=== PATIENT | male | born 1935 | race Caucasian/White ===

== ENCOUNTER 2021-10-21 09:08 | Emergency (ER) | payer MEDICARE, SELFPAY ==
--- NOTE | ~2021-10-21 | CT_ITS ---
EXAM: 1. Noncontrast head CT 2. Noncontrast facial bone CT 3. Noncontrast cervical spine CT INDICATION: Fall with head/neck and face injury. COMPARISON: None TECHNIQUE: Axial slices were obtained from skull base to vertex and displayed. This was followed by helical, multislice, multidetector axial images from the occiput to the upper thorax. Coronal and sagittal reformats of the cervical spine in addition to coronal reformats of the head were obtained at the technologist workstation. DLP: 1700 mGy-cm FINDINGS: HEAD/FACIAL BONES: There is no evidence of acute intracranial hemorrhage or territorial infarction. No abnormal mass effect or midline shift is appreciated. Roberts-white differentiation is well preserved. No extra-axial fluid collections. The ventricular system and cortical sulci are prominent, consistent with age-appropriate volume loss. Mild cerebellar volume loss is also appreciated. There are areas of low density in the periventricular and subcortical white matter, most consistent with sequelae of microvascular ischemic change. Nondisplaced bilateral nasal bone fractures. No other facial bone fracture. Mild soft tissue hematoma of the left frontal scalp. There is mild to moderate calcifications of the cavernous internal carotid arteries. Minimal mucosal thickening in the right maxillary sinus. The visualized paranasal sinuses and mastoid air cells are otherwise well aerated. SPINE: The cervical spine is visualized in its entirety. There is mild reversal of the normal cervical lordosis. There is normal C1/C2 articulation. Cervical vertebral body heights are maintained. Moderate to severe narrowing of the spaces diffusely throughout the cervical spine, most prominent at C4/C5. Small to moderate-sized osteophytes also noted throughout the cervical spine. Moderate to severe diffuse facet hypertrophy bilaterally. Mild biapical scarring. CT/CT cervical spine wo con IMPRESSION: 1. Nondisplaced bilateral nasal bone fractures. 2. No acute intracranial pathology. 3. Mild soft tissue hematoma the left frontal scalp. 4. Moderate diffuse degenerative changes of the cervical spine. This CT examination was performed using dose optimization techniques as appropriate, variously including the following: *Automated exposure control *Adjustment of mA and/or kV according to patient size (this includes techniques or standardized protocols for targeted exams where dose is matched to indication/reason for exam; i.e. extremities or head) *Use of iterative reconstruction technique
[2021-10-21 09:13] VITALS: BP 189/99; PULSE 65; RESP 18; TEMP 36.6; O2SAT 100; BMI 23.7
[2021-10-21] MEDS: Lidocaine HCl 2 % MPF 5 ML VIAL SUBCUT ×2 (10:10)
[2021-10-21 10:12] VITALS: BP 185/89; PULSE 65; RESP 16; O2SAT 97
--- NOTE | 2021-10-21 11:30 | ED_ITS ---
HPI - Wound/Laceration General Chief Complaint: Wound/Laceration Stated Complaint: fall, forehead laceration Time Seen by Provider: 10/21/21 09:34 Source: patient Mode of arrival: ambulatory Limitations: no limitations History of Present Illness HPI narrative: 86-year-old male presenting to the ED with complaints of a mechanical fall that occurred last night when he was walking down his steps he reports that he fell approximately 4 steps face forward landing on the hard floor. Denies loss of consciousness or prolonged down time. Denies any symptoms prior to the fall. Patient denies any symptoms after the fall. Reports that he did not even want to come here today his girlfriend made him. He reports that he is up-to-date on tetanus. He denies any other injuries complaints or concerns at this time. Onset (ago): day(s) ( Last night) Location: face ( forehead) Place: home Patient tetanus UTD: Yes Context: accidental Associated symptoms: none Treatments prior to arrival: bandage Related Data Previous Rx's Medication Instructions Recorded acetaminophen 500 mg tablet 1,000 mg PO QID PRN #14 tab 10/21/21 (Tylenol Extra Strength) cephalexin 500 mg capsule 500 mg PO Q6H 10 Days #40 cap 10/21/21 oxycodone 5 mg tablet 5 mg PO Q6H PRN #14 tab 10/21/21 Allergies Allergy/AdvReac Type Severity Reaction Status Date / Time No Known Allergies Allergy Verified 10/21/21 09:54 Review of Systems Review of Systems: Constitutional : No Fever, No Chills, Cardiovascular : No Chest Pain, No SOB Respiratory : No Dyspnea Gastrointestinal : No abdominal pain Musculoskeletal : No Joint Swelling Skin : positive skin laceration, No Foreign bodies, No rash, No surrounding erythema Neuro : No Weakness, No Numbness/tingling Psych : No SI/HI/thoughts of self injury Yes all other systems are reviewed and are negative FORMERLY [facility], [facility] Past Medical History Attestation statement: The following information was validated with the patient. Social History Social History Advance Directives: No Advance Directives Information Provided: Yes Physical Exam Vital Signs: Vital Signs: Last Vital Signs Temp 97.9 F 10/21/21 09:13 Pulse 65 10/21/21 10:12 Resp 16 10/21/21 10:12 BP 185/89 H 10/21/21 10:12 Pulse Ox 97 10/21/21 10:12 BMI result Body Mass Index 23.7 vital signs have been reviewed as normal and appeared to be correct. Blood pressure normal. Heart rate normal. Respiration rate normal. Temperature normal. Oxygen saturation normal. Appearance: Alert. Oriented X3. No acute distress. Head: to the mid forehead patient has a 3 cm intermediate linear laceration. No active bleeding or foreign bodies noted or scalp depressions noted. The rest of the external exam is within normal limits. No Corley signs noted. No raccoon eyes noted Eyes: PERRLA. EOMI. Conjunctiva and sclera normal. Eyelids normal. ENT: EAC normal. TM's Normal. patient does have some soft tissue swelling and abrasions to the bridge of the nose and some bruising and tenderness to palpation. No septal hematoma noted. No hemotympanum noted. Pharynx normal. Uvula midline. Moist mucous membranes. No lesions/ulcerations or masses noted on the tongue. Normal voice. No trismus noted. No drooling noted. No muffled voice noted. Neck: Normal inspection. Neck supple. FROM. No adenopathy. Thyroid Normal. No tracheal deviation noted. No crepitus is noted. No meningeal signs. No neck mass noted. No signs of trauma noted. CVS: Normal heart rate and rhythm. Heart sound normal. Pulses normal throughout. No murmurs/rales/gallops. Respiratory: No respiratory distress. Painless inspiration. Breath sounds normal. No wheezes/rales/rhonchi noted. Chest nontender. No crepitus is noted. No signs of trauma noted. No accessory muscle usage noted or decreased air movement noted. No signs of trauma. Abdomen: Soft and nontender. Bowel sounds normal in all 4 quadrants. No distention noted. No organomegaly noted. No visible injury noted. Back: No CVA tenderness. Full range of motion noted. Nontender. No signs of trauma. Patient neuro intact bilaterally and distally on all 4 extremities. Patient's reflexes intact bilaterally and distally on all 4 extremities. No rashes/lesion/induration/fluctuance or signs of infection noted. Skin: Skin warm and dry. Normal skin color. Normal skin turgor. No rashes/lesions/lacerations noted. Extremities: No lower extremity edema. No calf tenderness is noted. Extremities exhibit normal range of motion and nontender. Neuro: Oriented X 3. No motor deficit. No sensory deficit. Reflexes normal. Normal steady gait. No focal neuro deficits noted. CN's II-XII intact bilaterally? Vascular: + radial pulses/+ 2 distal pedal pulses/+2 dorsalis pedis b/l. Normal cap refill. No cyanosis noted to upper extremity nails and lower extremity toes nails. Course Course Course Narrative: Patient now status post laceration repair with 11 interrupted sutures. Patient reports he is up to Date on tetanus. CT scan of brain/ cervical spine within normal limits revealed chronic changes. CT scan of facial bones revealed bilateral nasal bone fractures. Although no septal hematoma noted. Therefore patient can follow-up as an outpatient basis. Instructed patient to return in 5 days for suture removal. Patient understands agrees with this plan. MDM - Wound/Laceration Medical Records Attestation: I reviewed the patient's medical records. Imaging Data CT scan of brain / cervical spine/facial bones: Attestation: I personally reviewed and interpreted this imaging study as follows: Radiologist's impression: FINDINGS: HEAD/FACIAL BONES: There is no evidence of acute intracranial hemorrhage or territorial infarction.? No abnormal mass effect or midline shift is appreciated. Roberts-white differentiation is well preserved.? No extra-axial fluid collections. The ventricular system and cortical sulci are prominent, consistent with age-appropriate volume loss.? Mild cerebellar volume loss is also appreciated. There are areas of low density in the periventricular and subcortical white matter, most consistent with sequelae of microvascular ischemic change.? Nondisplaced bilateral nasal bone fractures. No other facial bone fracture. Mild soft tissue hematoma of the left frontal scalp. There is mild to moderate calcifications of the cavernous internal carotid arteries. Minimal mucosal thickening in the right maxillary sinus. The visualized paranasal sinuses and mastoid air cells are otherwise well aerated. SPINE: The cervical spine is visualized in its entirety. There is mild reversal of the normal cervical lordosis. There is normal C1/C2 articulation. Cervical vertebral body heights are maintained. Moderate to severe narrowing of the spaces diffusely throughout the cervical spine, most prominent at C4/C5. Small to moderate-sized osteophytes also noted throughout the cervical spine. Moderate to severe diffuse facet hypertrophy bilaterally. Mild biapical scarring. CT/CT head/brain wo con IMPRESSION: 1. Nondisplaced bilateral nasal bone fractures. 2. No acute intracranial pathology. 3. Mild soft tissue hematoma the left frontal scalp. 4. Moderate diffuse degenerative changes of the cervical spine. ? Procedures Laceration Laceration 1: Site: face ( forehead) Size (cm): 3 Description: linear Depth: involves muscle layer Local Anesthetic: lidocaine 2% Amount of anesthesia used (mL): 10 Pre-repair: wound explored, irrigated extensively and deep structures intact Skin layer closed with: nylon Size (cm): 3-0 Number of sutures: 11 Technique: simple, interrupted Critical Care Time Critical Care Time Critical Care Time: Yes Total Critical Care Time: 60 Attestation: I personally attest to this time spent taking care of the patient Discharge Plan Discharge Clinical Impression: Fall, Forehead laceration, Fracture of nasal bones, closed Patient Disposition: Home, Self-Care Instructions: Nasal Fracture (ED), Laceration (ED) Prescriptions: New cephalexin 500 mg capsule 500 mg PO Q6H 10 Days Qty: 40 0RF acetaminophen [Tylenol Extra Strength] 500 mg tablet 1,000 mg PO QID PRN (Reason: fever or pain) Qty: 14 0RF oxycodone 5 mg tablet 5 mg PO Q6H PRN (Reason: pain) Qty: 14 0RF Referrals: Monty Trinidad [Physician] - 1 week Lizzy Sapp PA [Emergency Midlevel Provider] - 5 days ( for suture removal)
== END 2021-10-21 11:42 | disposition home or self-care (01) ==
PROVIDERS: Emergency Provider Student in an Organized Health Care Education/Training Program
DX: S01.81XA Laceration without foreign body of other part of head, initial encounter (principal); S02.2XXA Fracture of nasal bones, initial encounter for closed fracture; W10.8XXA Fall (on) (from) other stairs and steps, initial encounter; Y93.89 Activity, other specified; Y92.038 Other place in apartment as the place of occurrence of the external cause; Y99.9 Unspecified external cause status
CPT/HCPCS: 12013; 70450; 70486; 72125; 99282; 99284

== ENCOUNTER 2021-10-26 16:20 | Emergency (ER) | payer MEDICARE, SELFPAY ==
[2021-10-26 16:25] VITALS: BP 175/105; PULSE 67; RESP 18; TEMP 36.9; O2SAT 98; BMI 22.5
--- NOTE | 2021-10-26 16:52 | ED.WOUNDLAC ---
HPI - Wound/Laceration General Chief Complaint: Wound/Laceration Stated Complaint: suture removal Time Seen by Provider: 10/26/21 16:22 Source: patient Mode of arrival: ambulatory Limitations: no limitations History of Present Illness HPI narrative: 86-year-old male here for suture removal from his head. Patient was here 6 days ago for stitches. He has no complaints Related Data Previous Rx's Medication Instructions Recorded acetaminophen 500 mg tablet 1,000 mg PO QID PRN fever or pain 10/21/21 (Tylenol Extra Strength) #14 tabs cephalexin 500 mg capsule 500 mg PO Q6H 10 days #40 caps 10/21/21 oxycodone 5 mg tablet 5 mg PO Q6H PRN pain #14 tabs 10/21/21 Allergies Allergy/AdvReac Type Severity Reaction Status Date / Time No Known Allergies Allergy Verified 10/21/21 09:54 Review of Systems Constitutional: Constitutional: Denies chills, Denies fever(s) and Denies headache(s) Eyes: Eyes: Denies eye discharge ENT: Denies headache(s) and Denies neck pain Gastrointestinal: Gastrointestinal: Denies nausea and Denies vomiting Musculoskeletal: Musculoskeletal: Denies arthralgias, Denies joint swelling, Denies neck pain, Denies numbness and Denies tingling Integumentary/Breasts: Skin/Breast: Denies swelling, Denies erythema and Denies rash Neurologic: Denies Abnormal speech present, Denies headache(s), Denies numbness and Denies tingling PMFSH Past Medical History Attestation statement: The following information was validated with the patient. Source: old records reviewed and nursing notes reviewed Social History Social History Advance Directives: Yes Advance Directives Information Provided: No Advance Directives on File: No Physical Exam Vital Signs: Vital Signs: Last Vital Signs Temp 98.5 F 10/26/21 16:25 Pulse 67 10/26/21 16:25 Resp 18 10/26/21 16:25 BP 175/105 H 10/26/21 16:25 Pulse Ox 98 10/26/21 16:25 O2 Del Method 10/26/21 16:25 BMI result Body Mass Index 22.5 Const: General: cooperative, healthy appearing, comfortable and no acute distress Orientation/consciousness: patient oriented x3 Limitations: no limitations HEENT: Head: Yes normal to inspection Head images: 1. Sutures noted Eyes: General: appearance normal, both eyes and all related structures Neck: Neck: Yes normal visual inspection Chest: Chest palpation & inspection: normal inspection of the chest Resp: Effort & Inspection: normal respiratory effort Skin: General skin exam: no rashes or lesions noted Neuro: General: patient oriented x3 and moves all extremities Cognition (Neuro): normal cognition Speech: No Abnormal speech present Gait exam (Neuro): Normal gait present Course Course Course Narrative: See procedure note for suture removal. There is no warmth, redness, drainage, odor. Steri-Strips were placed Reviewed worrisome signs and symptoms of when to return to the emergency department. Comfortable discharge home. MDM - Wound/Laceration Medical Records Attestation: I reviewed the patient's medical records. Procedures Procedure Narrative Procedure Narrative: 11 sutures removed from head. No complications Discharge Plan Discharge Clinical Impression: Encounter for removal of sutures Patient Disposition: Home, Self-Care Instructions: Steristrips (ED), Stitches Removal (ED) Additional Instructions: Leave the butterfly stitches on for few days You may remove them after this If they fall off do not worry Prescriptions: No Action cephalexin 500 mg capsule 500 mg PO Q6H 10 Days Qty: 40 0RF acetaminophen [Tylenol Extra Strength] 500 mg tablet 1,000 mg PO QID PRN (Reason: fever or pain) Qty: 14 0RF oxycodone 5 mg tablet 5 mg PO Q6H PRN (Reason: pain) Qty: 14 0RF Referrals: Physician,None [Primary Care Provider] - 1 week (as needed) Interventions: ED Discharge Assessment Last Done: 10/26/21 17:06 Discharge Date/Time: 10/26/21 17:11
== END 2021-10-26 17:11 | disposition home or self-care (01) ==
PROVIDERS: Emergency Provider Emergency Medicine
DX: Z48.02 Encounter for removal of sutures (principal)
CPT/HCPCS: 99282; 99283

== ENCOUNTER 2022-02-18 15:32 | Inpatient (IN) | payer MEDICARE, SELFPAY ==
[2022-02-18] VITALS (8 sets, daily range): BP systolic 85–163; BP diastolic 52–103; PULSE 65–90; RESP 16–24; TEMP 36.6–36.8; O2SAT 98–100; BMI 21.9
--- NOTE | 2022-02-18 16:11 | ECG_ITS ---
Test Reason : DIZZINESS Blood Pressure : / mmHG Vent. Rate : 069 BPM Atrial Rate : 069 BPM P-R Int : 204 ms QRS Dur : 104 ms QT Int : 412 ms P-R-T Axes : 065 016 068 degrees QTc Int : 441 ms Sinus rhythm with Premature atrial complexes with Aberrant conduction Incomplete right bundle branch block Cannot rule out Anterior infarct , age undetermined Abnormal ECG No previous ECGs available Referred By: Generic ED Physician Electronically Signed By:RONNIE BUCHANAN
[2022-02-18 16:40] LABS: MANUAL DIFF FLAG NO
[2022-02-18 16:49] LABS: Basophils Percent Auto 0.3 % (0-2); Eosinophils Percent Auto 0.3 % (0-4); Hematocrit 29.1 % (42.0-52.0); Hemoglobin 10.5 g/dl (14.0-18.0); Imm Gran Abs Auto 0.06 X10*3/uL (0.00-0.03); Imm Gran Pct Auto 0.6 % (0.0-0.4); Lymphocytes Absolute Auto 0.8 X10*3/uL (1.2-4.9); Lymphocytes Percent Auto 7.9 % (20-40); Mean Corpuscular HGB Conc 36.1 g/dl (31.0-36.0); Mean Corpuscular Hemoglobin 32.3 pg (27.0-33.0); Mean Corpuscular Volume 89.5 fL (80.0-98.0); Mean Platelet Volume 9.4 fL (9.4-12.4); Monocytes Absolute Auto 0.9 X10*3/uL (0.1-1.2); Monocytes Percent Auto 8.7 % (2-11); Neutrophils Absolute Auto 8.2 x10*3/uL (2.0-8.3); Neutrophils Percent Auto 82.2 % (45-73); Platelet Count 225 X10*3/uL (160-400); Red Blood Count 3.25 X10*6/uL (4.60-5.80); Red Cell Distribution Width 12.3 % (11.0-16.0)
[2022-02-18 16:52] LABS: Anion Gap 15 (12-20); Blood Urea Nitrogen 29 mg/dL (9-16); Calcium 9.1 mg/dL (8.4-10.2); Carbon Dioxide 23 mmol/L (22-29); Chloride 99 mmol/L (96-108); Creatinine Clr Calc Pharmacy 90.7; Estimated Glomerular Filt Rate > 60; Glucose Random 105 mg/dL (60-115); Potassium 4.7 mmol/L (3.3-5.1); Sodium 132 mmol/L (135-145)
[2022-02-18 16:59] LABS: Troponin-I High Sensitivity 9.3 ng/L (<3.5-35.0)
[2022-02-18 17:00] LABS: OBS Int Ctl Valid YES; OBS1 POSITIVE (NEGATIVE)
[2022-02-18 17:05] LABS: COVID-19 Test Negative (Negative); IDNOW Serial# 16C4AD1C
--- NOTE | 2022-02-18 17:41 | ED_ITS ---
HPI - General Adult General Chief complaint: Dizziness Stated complaint: internal bleeding upper gi Time Seen by Provider: 02/18/22 16:38 Source: patient Mode of arrival: ambulatory Limitations: no limitations History of Present Illness HPI narrative: Patient comes to the emergency room complaining of dizziness upon standing, black stool for 1 week. Patient states that he has no chest pain or shortness of breath at rest. But whenever he sits up and stands up, patient becomes very lightheaded. Patient has also notice that his stool is black, initially started out as diarrhea, then took Imodium, today had constipation and used an enema to help him have a bowel movement. Patient denies taking Pepto-Bismol. Patient states that ?mini? years ago he had a colonoscopy, he had several polyps resected. Related Data Previous Rx's Medication Instructions Recorded acetaminophen 500 mg tablet 1,000 mg PO QID PRN fever or pain 10/21/21 (Tylenol Extra Strength) #14 tabs cephalexin 500 mg capsule 500 mg PO Q6H 10 days #40 caps 10/21/21 oxycodone 5 mg tablet 5 mg PO Q6H PRN pain #14 tabs 10/21/21 Allergies Allergy/AdvReac Type Severity Reaction Status Date / Time No Known Allergies Allergy Verified 02/18/22 16:43 Review of Systems Review of Systems: Constitutional : No Weight loss, No Fever, No Chills, No Night Sweats, No Fatigue, No Malaise ENT/Mouth : No Hearing loss, No Ear Pain, No Nasal Congestion, No Sinus Pain, No Hoarseness, No sore throat, No Rhinorrhea, No Swallowing Difficulty Eyes: No Eye Pain, No Swelling, No Redness, No Foreign Body, No Discharge, No Vision Changes Cardiovascular : No Chest Pain, No SOB, No Dyspnea on Exertion, No Orthopnea, No Edema, No Palpitations Respiratory : No Cough, No Sputum, No Wheezing, No Smoke Exposure, No Dyspnea Gastrointestinal : No Nausea, No Vomiting, complaining of diarrhea which resolved after taking Imodium, complaining of diarrhea for which he had to use an enema today, No abdominal Pain, no rectal pain, complaining of black stool Genitourinary : no irregular bleeding, No Dysuria, No Urinary Frequency, No Hematuria, No Urinary Incontinence, No Urgency, No Flank Pain, No Urinary Flow Changes, No Hesitancy Musculoskeletal : No joint pain, No Myalgias, No Joint Swelling Skin : No Skin Lesions, No rash Neuro : No Weakness, No Numbness, No Paresthesias, No Loss of Consciousness, no headache, complaining of lightheadedness with sitting and standing up Psych : No Anxiety/Panic, No Depression, No SI/HI/AH/VH, No Social Issues, Heme/Lymph: No Bruising, No Bleeding,No Lymphadenopathy Endocrine : No Polyuria, No Polydipsia, No Temperature Intolerance [facility] [place] Social History Social History Advance Directives: Yes Advance Directives Information Provided: No Advance Directives on File: No Physical Exam ED Vital Signs: Vital Signs - 24 hr 02/18/22 16:05 02/18/22 18:04 02/18/22 18:05 Temperature 98.0 F Pulse Rate 65 72 79 Respiratory Rate 24 H Blood Pressure 140/61 H 147/68 H 132/71 Pulse Oximetry 100 Oxygen Delivery Method Room Air 02/18/22 18:06 Temperature Pulse Rate 90 Respiratory Rate Blood Pressure 85/52 L Pulse Oximetry Oxygen Delivery Method BMI result Body Mass Index 21.9 Const Other: Appearance: Alert. Oriented X3. No acute distress. Eyes: Pupils equal, round and reactive to light. ENT: Pharynx normal. Neck: Normal inspection. Neck supple. No lymph nodes noted. No crepitus CVS: Normal heart rate and rhythm. Pulses normal. Normal S1 and S2 Respiratory: No respiratory distress. Breath sounds normal. No Wheezing. No rales Abdomen: Soft and nontender. No rigidity. No distention. On digital rectal exam, there was scant amount of stool, seems black. There is a small external hemorrhoid, no bleeding, not painful. Does not seem to have internal hemorrhoids. Skin: Skin warm and dry. Mildly pale, Normal skin turgor. Extremities: No lower extremity edema. No Lacerations. No Rash Neuro: Oriented X 3. No motor deficit. No sensory deficit. Moving all extremities. No slurred speech. CN 2 through 12 grossly intact Psych: calm, cooperative, normal affect Course Course Course Narrative: Patient's orthostatic vitals are positive, blood pressure dropped from 130 systolic to 80 systolic while standing. I discussed the patient with Dr. shahid. At this time we will go ahead and transfuse the patient. I discussed with the patient the risks versus benefits of a blood transfusion. Patient states that he is agreeable to get blood. We will start with 1 unit. Consent has been signed. It is in the patient's chart. Medical Decision Making Lab Data Result diagrams: 02/18/22 16:31 02/18/22 16:31 Labs: Lab Results 02/18/22 02/18/22 02/18/22 Range/Units 16:30 16:31 16:31 WBC 10.0 (4.8-10.8) X10*3/uL RBC 3.25 L (4.60-5.80) X10*6/uL Hgb 10.5 L (14.0-18.0) g/dl Hct 29.1 L (42.0-52.0) % MCV 89.5 (80.0-98.0) fL MCH 32.3 (27.0-33.0) pg MCHC 36.1 H (31.0-36.0) g/dl RDW 12.3 (11.0-16.0) % Plt Count 225 (160-400) X10*3/uL MPV 9.4 (9.4-12.4) fL Immature Gran % (Auto) 0.6 H (0.0-0.4) % Neut % (Auto) 82.2 H (45-73) % Lymph % (Auto) 7.9 L (20-40) % [place] % (Auto) 8.7 (2-11) % Eos % (Auto) 0.3 (0-4) % Baso % (Auto) 0.3 (0-2) % Lymph # (Auto) 0.8 L (1.2-4.9) X10*3/uL [place] # (Auto) 0.9 (0.1-1.2) X10*3/uL Eos # (Auto) 0.0 (0.0-0.4) X10*3/uL Baso # (Auto) 0.0 (0.0-0.2) X10*3/uL Abs Immat Gran (auto) 0.06 H (0.00-0.03) X10*3/uL Absolute Neuts (auto) 8.2 (2.0-8.3) x10*3/uL Absolute Nucleated RBC 0.000 (0.0-0.012) X10*3/uL Nucleated RBC % (auto) 0.0 (0.0-0.2) /100WBC Sodium (135-145) mmol/L Potassium (3.3-5.1) mmol/L Chloride (96-108) mmol/L Carbon Dioxide (22-29) mmol/L Anion Gap (12-20) BUN (9-16) mg/dL Creatinine (0.5-1.4) mg/dL Estim Creat Clear Calc Estimated GFR Random Glucose (60-115) mg/dL Calcium (8.4-10.2) mg/dL Troponin I High Sens 9.3 (<3.5-35.0) ng/L Stool Occult Blood (NEGATIVE) COVID-19 ([facility]) Negative (Negative) COVID-19 Clin Com See Note 02/18/22 02/18/22 Range/Units 16:31 16:49 WBC (4.8-10.8) X10*3/uL RBC (4.60-5.80) X10*6/uL Hgb (14.0-18.0) g/dl Hct (42.0-52.0) % MCV (80.0-98.0) fL MCH (27.0-33.0) pg MCHC (31.0-36.0) g/dl RDW (11.0-16.0) % Plt Count (160-400) X10*3/uL MPV (9.4-12.4) fL Immature Gran % (Auto) (0.0-0.4) % Neut % (Auto) (45-73) % Lymph % (Auto) (20-40) % [place] % (Auto) (2-11) % Eos % (Auto) (0-4) % Baso % (Auto) (0-2) % Lymph # (Auto) (1.2-4.9) X10*3/uL [place] # (Auto) (0.1-1.2) X10*3/uL Eos # (Auto) (0.0-0.4) X10*3/uL Baso # (Auto) (0.0-0.2) X10*3/uL Abs Immat Gran (auto) (0.00-0.03) X10*3/uL Absolute Neuts (auto) (2.0-8.3) x10*3/uL Absolute Nucleated RBC (0.0-0.012) X10*3/uL Nucleated RBC % (auto) (0.0-0.2) /100WBC Sodium 132 L (135-145) mmol/L Potassium 4.7 (3.3-5.1) mmol/L Chloride 99 (96-108) mmol/L Carbon Dioxide 23 (22-29) mmol/L Anion Gap 15 (12-20) BUN 29 H (9-16) mg/dL Creatinine 0.68 (0.5-1.4) mg/dL Estim Creat Clear Calc 90.7 Estimated GFR > 60 Random Glucose 105 (60-115) mg/dL Calcium 9.1 (8.4-10.2) mg/dL Troponin I High Sens (<3.5-35.0) ng/L Stool Occult Blood POSITIVE (NEGATIVE) COVID-19 ([facility]) (Negative) COVID-19 Clin Com Critical Care Time Critical Care Time Critical Care Time: Yes Total Critical Care Time: 45 Attestation: I have personally provided critical care time. Time includes review of lab data, radiology results, discussion with consultants, and monitoring for potential decompensation. Intervention performed as documented. Discharge Plan Discharge Clinical Impression: GI bleed Patient Disposition: Admitted As Inpatient Prescriptions: No Action cephalexin 500 mg capsule 500 mg PO Q6H 10 Days Qty: 40 0RF acetaminophen [Tylenol Extra Strength] 500 mg tablet 1,000 mg PO QID PRN (Reason: fever or pain) Qty: 14 0RF oxycodone 5 mg tablet 5 mg PO Q6H PRN (Reason: pain) Qty: 14 0RF
--- NOTE | 2022-02-18 19:46 | PHA.MEDREC ---
Pharmacy Consult ? Medication Reconciliation Pharmacy has completed the medication reconciliation. Patient takes 325 mg of ASA daily (not 81mg). Also, patient endorses his lisinopril/hctz combo pill went from 1.5 tablets to 2 tablets daily. He also states that he spreads out his flomax BID since taking them both together makes him feel sick. José Miguel
[2022-02-19] VITALS (16 sets, daily range): BP systolic 109–154; BP diastolic 57–78; PULSE 58–74; RESP 11–18; TEMP 36.3–36.8; O2SAT 95–100
--- NOTE | 2022-02-19 00:14 | PC.NURSE ---
Blood transfusion is complete, vitals completed. Pt. resting quietly in bed.
--- NOTE | 2022-02-19 07:51 | PC.NURSE ---
report received from night nurse RASHEEDA Eaton pt is resting comfortably on the stretcher at this time, no reports of pain. VSS
[2022-02-19 08:39] LABS: MANUAL DIFF FLAG NO
--- NOTE | 2022-02-19 08:41 | PC.NURSE ---
pt pending admission, Dr. Clark will be down to talk with the pt. PCT Gabe in to draw repeat lab work
[2022-02-19 08:42] LABS: Basophils Percent Auto 0.4 % (0-2); Eosinophils Absolute Auto 0.2 X10*3/uL (0.0-0.4); Eosinophils Percent Auto 2.3 % (0-4); Hematocrit 30.6 % (42.0-52.0); Hemoglobin 11.2 g/dl (14.0-18.0); Imm Gran Abs Auto 0.04 X10*3/uL (0.00-0.03); Imm Gran Pct Auto 0.5 % (0.0-0.4); Lymphocytes Percent Auto 13.3 % (20-40); Mean Corpuscular HGB Conc 36.6 g/dl (31.0-36.0); Mean Corpuscular Hemoglobin 32.1 pg (27.0-33.0); Mean Corpuscular Volume 87.7 fL (80.0-98.0); Mean Platelet Volume 9.1 fL (9.4-12.4); Monocytes Percent Auto 12.6 % (2-11); Neutrophils Absolute Auto 5.5 x10*3/uL (2.0-8.3); Neutrophils Percent Auto 70.9 % (45-73); Platelet Count 210 X10*3/uL (160-400); Red Blood Count 3.49 X10*6/uL (4.60-5.80); Red Cell Distribution Width 12.7 % (11.0-16.0); White Blood Count 7.8 X10*3/uL (4.8-10.8)
--- NOTE | 2022-02-19 09:05 | P.HPHOSP_ITS ---
History of Present Illness Date of Service: 02/19/22 Chief Complaint: Black stools Patient comes to the emergency room complaining of dizziness upon standing, black stool for 1 week.? Patient states that he has no chest pain or shortness of breath at rest.? But whenever he sits up and stands up, patient becomes very lightheaded.? Patient has also notice that his stool is black, initially started out as diarrhea, then took Imodium, today had constipation and used an enema to help him have a bowel movement.? Patient denies taking Pepto-Bismol.? Patient states that ?mini? years ago he had a colonoscopy, he had several polyps resected. ER Course Noted to be profoundly orthostatic; hemoglobin 10 given 1 unit of blood. Ortho status essentially resolved if movement is slow per patient. No further stools per patient Review of Systems Review of Systems: Denies chest pain Denies shortness of breath Denies nausea vomiting admits to black tarry stool x1 week Denies fever chills PMFSH Social History Advance Directives: Yes Advance Directives Information Provided: No Advance Directives on File: No Meds Allergies Allergy/AdvReac Type Severity Reaction Status Date / Time No Known Allergies Allergy Verified 02/18/22 16:43 Active Medications: Current Medications Atorvastatin Calcium (Atorvastatin Calcium 40 Mg Tablet) 40 mg PO DAILY [facility] Multivitamins/Vitamin C (Multivitamin Tablet) 1 tab PO DAILY [facility] Pantoprazole Sodium (Pantoprazole Sodium 40 Mg/10 Ml Vial) 40 mg IVPUSH Q12H [facility] Pharmacy Consult (Consult Rx Perform Med Rec) 1 each MISCELLANE ONCE PRN PRN Reason: Consult order Sodium Chloride (0.9 % Sodium Chloride Flush 3 Ml Syringe) 3 ml IVFLUSH QSHIFT [facility] Tamsulosin HCl (Tamsulosin Hcl 0.4 Mg Capsule) 0.4 mg PO BID [facility] Home Medications Medication Instructions Recorded Confirmed Last Taken Type amlodipine 2.5 mg tablet 1 tab PO DAILY 02/18/22 02/18/22 02/18/22 History aspirin 325 mg tablet,delayed 325 mg PO DAILY 02/18/22 02/18/22 02/18/22 History release atorvastatin 40 mg tablet 1 tab PO DAILY 02/18/22 02/18/22 02/18/22 History lisinopril 10 2 tab PO DAILY 02/18/22 02/18/22 02/18/22 History mg-hydrochlorothiazide 12.5 mg tablet multivitamin 1 tab PO DAILY 02/18/22 02/18/22 02/18/22 History tamsulosin 0.4 mg capsule 1 cap PO BID 02/18/22 02/18/22 02/18/22 History Physical Exam Vital Signs and Narrative: Vital Signs: Last Vital Signs Temp 97.9 F 02/19/22 00:14 Pulse 70 02/19/22 08:43 Resp 17 02/19/22 08:43 BP 136/76 02/19/22 06:48 Pulse Ox 96 02/19/22 08:43 O2 Del Method 02/19/22 08:43 BMI result Body Mass Index 21.9 Const: Other: Awake alert oriented x3 no acute distress Resp: Other: Clear to auscultation bilaterally no rales rhonchi or wheezes Cardio: Other: No S4; positive S1-S2; no S3 murmurs rubs gallops GI: Other: Soft nontender nondistended with normoactive bowel sounds Neuro: Other: Cranial nerves 2-12 grossly intact as tested. Motor is 5/5 bilaterally. Sensations intact. Cognition appropriate Extrem: Other: No edema bilaterally Results Labs CBC and Chem 7: 02/19/22 08:34 02/18/22 16:31 Labs: Laboratory Results - last 24 hr 02/18/22 02/18/22 02/18/22 16:30 16:31 16:31 MCV 89.5 MCH 32.3 MCHC 36.1 H RDW 12.3 Plt Count 225 MPV 9.4 Immature Gran % (Auto) 0.6 H Neut % (Auto) 82.2 H Lymph % (Auto) 7.9 L [place] % (Auto) 8.7 Eos % (Auto) 0.3 Baso % (Auto) 0.3 Lymph # (Auto) 0.8 L [place] # (Auto) 0.9 Eos # (Auto) 0.0 Baso # (Auto) 0.0 Abs Immat Gran (auto) 0.06 H Absolute Neuts (auto) 8.2 Absolute Nucleated RBC 0.000 Nucleated RBC % (auto) 0.0 Anion Gap Estim Creat Clear Calc Estimated GFR Random Glucose Calcium Troponin I High Sens 9.3 Stool Occult Blood COVID-19 ([facility]) Negative [email or web address] Com See Note Blood Type Antibody Screen Crossmatch 02/18/22 02/18/22 02/18/22 16:31 16:49 18:56 MCV MCH MCHC RDW Plt Count MPV Immature Gran % (Auto) Neut % (Auto) Lymph % (Auto) [place] % (Auto) Eos % (Auto) Baso % (Auto) Lymph # (Auto) [place] # (Auto) Eos # (Auto) Baso # (Auto) Abs Immat Gran (auto) Absolute Neuts (auto) Absolute Nucleated RBC Nucleated RBC % (auto) Anion Gap 15 Estim Creat Clear Calc 90.7 Estimated GFR > 60 Random Glucose 105 Calcium 9.1 Troponin I High Sens Stool Occult Blood POSITIVE COVID-19 ([facility]) [email or web address] Com Blood Type A Positive Antibody Screen NEGATIVE Crossmatch See Detail 02/19/22 08:34 MCV 87.7 MCH 32.1 MCHC 36.6 H RDW 12.7 Plt Count 210 MPV 9.1 L Immature Gran % (Auto) 0.5 H Neut % (Auto) 70.9 Lymph % (Auto) 13.3 L [place] % (Auto) 12.6 H Eos % (Auto) 2.3 Baso % (Auto) 0.4 Lymph # (Auto) 1.0 L [place] # (Auto) 1.0 Eos # (Auto) 0.2 Baso # (Auto) 0.0 Abs Immat Gran (auto) 0.04 H Absolute Neuts (auto) 5.5 Absolute Nucleated RBC 0.000 Nucleated RBC % (auto) 0.0 Anion Gap Estim Creat Clear Calc Estimated GFR Random Glucose Calcium Troponin I High Sens Stool Occult Blood COVID-19 ([facility]) COVID-19 [employer] Com Blood Type Antibody Screen Crossmatch Assessment and Plan (1) GI bleed: Status: Acute (2) Hypertension: Status: Acute (3) GERD (gastroesophageal reflux disease): Status: Acute Plan 86-year-old male with past medical history significant for hypertension and GERD presents the emergency room with black stool x1 week and dizziness when standing. Initial hemoglobin was found to be 10 however patient extremely orthostatic. Given 1 unit of packed red cells with excellent response 1.GIB -hemoglobin stable this a.m. -will give IV pantoprazole b.i.d. -no further bleeding. . . Will advance diet (discussed with GI will see later today) -hold ASA 2. Hypertension -acceptable control on current therapies -hold outpatient therapies to document stability -reintroduce when clinically appropriate 3. GERD -IV pantoprazole Full code Pneumatics Will require 2 midnights going forward for monitoring of hemoglobin and possibly further transfusions. This cannot be achieved a less acute setting Quality Stroke Does the patient have a stroke diagnosis?: No VTE Prior VTE?: No VTE Risk Level:: Medical - moderate - high VTE Device Contraindication: N/A - Device Ordered VTE Drug Contraindication: Treatment Not Indicated
[2022-02-19 09:15] LABS: Anion Gap 13 (12-20); Blood Urea Nitrogen 18 mg/dL (9-16); Calcium 8.5 mg/dL (8.4-10.2); Carbon Dioxide 24 mmol/L (22-29); Chloride 98 mmol/L (96-108); Creatinine Clr Calc Pharmacy 97.9; Estimated Glomerular Filt Rate > 60; Glucose Random 97 mg/dL (60-115); Potassium 3.9 mmol/L (3.3-5.1); Sodium 131 mmol/L (135-145)
[2022-02-19] MEDS: Atorvastatin Calcium 40 MG TABLET PO (09:24)
[2022-02-19] MEDS: Pantoprazole Sodium 40 MG/10 ML VIAL IVPUSH ×2 (09:24→22:05)
[2022-02-19] MEDS: Multivitamin TABLET 1 TAB PO (09:24)
[2022-02-19 10:05] LABS: Prothrombin Time 11.4 SEC (10.0-13.1)
--- NOTE | 2022-02-19 10:55 | MHC.SHP ---
Pre-Procedural Eval Section A Date of Service: 02/19/22 The patient is an INPATIENT: Yes The History & Physical has been completed within 30 days and I have reviewed it.: Yes Section B Chief Complaint: GIB Allergies: Allergies Allergy/AdvReac Type Severity Reaction Status Date / Time No Known Allergies Allergy Verified 02/18/22 16:43 Plan I have reviewed the history and physical and performed a pertinent physical examination on my patient. No changes have occurred unless specified.
--- NOTE | 2022-02-19 11:40 | PM.EVENT ---
Event Note Date of Service: 02/19/22 Event Note: GI Consult-Full note dictated Imp: 86 yo male who reports taking one 325mg aspirin daily presenting with reported melena and reported near-syncope. He denies any particular UGI complaints. He has had no signs of bleeding since admission. He denies N/V/GERD/Dysphagia. He is s/p 1 u PRBC. He has 4 beers QD. He denies tobacco. He denies any NSAIDs. Diff dx: PUD, Erosive gastritis. Esophagitis, UGI neoplasm Rec: EGD with MAC today with me or Dr. Momin. Full consent obtained from him for this, including risks of bleeding and perforation. Continue PPI. Monitor Hgb. D/W patient in detail and he is currently comfortable with this plan. Thanks
--- NOTE | 2022-02-19 11:49 | PC.NURSE ---
report given to RASHEEDA Araya in short stay surgery. plan for surgery around 1pm, pt comfortable with plan at this time
--- NOTE | 2022-02-19 13:52 | HO.ANESPROP2 ---
HPI - Anesthesia Eval Consult details Narrative: 86 yo male patient for EGD with gold probe PMFSH Active Problems Active Problems: All Active Problems (Updated 02/19/22 @ 13:08 by Lana García) GI bleed (Acute) with orthostatic hypotension. S/p 1u PRBC Hypertension (Acute) GERD (gastroesophageal reflux disease) (Acute) BPH 3-4 beers per day Hyponatremia Family History Family history of problems with anesthesia: No Surgical History Surgical History (Updated 02/19/22 @ 14:03 by Tanisha Naranjo MD) H/O colonoscopy Inguinal hernia recurrent unilateral History of Problems with Anesthesia: No Social History Social History Alcohol intake: current Alcohol intake frequency: 3 or more drinks per day Alcohol type: beer Patient Tobacco Use Status: Former Tobacco user Tobacco use type: Cigarette Years Smoked: 40 Smoked in Last 30 Days: No Use of substances other than those prescribed or required for medical reasons: No Are you DNR?: No Advance Directives: No Advance Directives Information Provided: No Advance Directives on File: No Meds Allergies Allergy/AdvReac Type Severity Reaction Status Date / Time No Known Allergies Allergy Verified 02/19/22 13:07 Active Medications: Current Medications Atorvastatin Calcium (Atorvastatin Calcium 40 Mg Tablet) 40 mg PO DAILY [facility] Last Admin: 02/19/22 09:24 Dose: 40 mg Multivitamins/Vitamin C (Multivitamin Tablet) 1 tab PO DAILY [facility] Last Admin: 02/19/22 09:24 Dose: 1 tab Pantoprazole Sodium (Pantoprazole Sodium 40 Mg/10 Ml Vial) 40 mg IVPUSH BID [facility] Last Admin: 02/19/22 09:24 Dose: 40 mg Pharmacy Consult (Consult Rx Perform Med Rec) 1 each MISCELLANE ONCE PRN PRN Reason: Consult order Sodium Chloride (0.9 % Sodium Chloride Flush 3 Ml Syringe) [address] [facility] Tamsulosin HCl (Tamsulosin Hcl 0.4 Mg Capsule) 0.4 mg PO BID [facility] Home Medications Medication Instructions Recorded Confirmed Last Taken Type amlodipine 2.5 mg tablet 1 tab PO DAILY 02/18/22 02/18/22 02/18/22 History aspirin 325 mg tablet,delayed 325 mg PO DAILY 02/18/22 02/18/22 02/18/22 History release atorvastatin 40 mg tablet 1 tab PO DAILY 02/18/22 02/18/22 02/18/22 History lisinopril 10 2 tab PO DAILY 02/18/22 02/18/22 02/18/22 History mg-hydrochlorothiazide 12.5 mg tablet multivitamin 1 tab PO DAILY 02/18/22 02/18/22 02/18/22 History tamsulosin 0.4 mg capsule 1 cap PO BID 02/18/22 02/18/22 02/18/22 History Exam Exam Date and Time: February 19, 2022 1352 Height,Weight and Vital Signs: Height 6 ft 3 in Weight 79.379 kg Last Vital Signs Temp 97.8 F 02/19/22 13:09 Pulse 68 02/19/22 13:09 Resp 16 02/19/22 13:09 BP 121/65 02/19/22 13:09 Pulse Ox 100 02/19/22 13:09 O2 Del Method 02/19/22 13:09 Pertinent Lab Results Pertinent Lab Results: Laboratory Tests 02/18/22 02/18/22 02/18/22 16:30 16:31 16:31 WBC 10.0 RBC 3.25 L Hgb 10.5 L Hct 29.1 L MCV 89.5 MCH 32.3 MCHC 36.1 H RDW 12.3 Plt Count 225 MPV 9.4 Immature Gran % (Auto) 0.6 H Neut % (Auto) 82.2 H Lymph % (Auto) 7.9 L [place] % (Auto) 8.7 Eos % (Auto) 0.3 Baso % (Auto) 0.3 Lymph # (Auto) 0.8 L [place] # (Auto) 0.9 Eos # (Auto) 0.0 Baso # (Auto) 0.0 Abs Immat Gran (auto) 0.06 H Absolute Neuts (auto) 8.2 Absolute Nucleated RBC 0.000 Nucleated RBC % (auto) 0.0 PT INR Sodium Potassium Chloride Carbon Dioxide Anion Gap BUN Creatinine Estim Creat Clear Calc Estimated GFR Random Glucose Calcium Troponin I High Sens 9.3 Stool Occult Blood COVID-19 ([facility]) Negative COVID-19 Clin Com See Note Blood Type Antibody Screen Crossmatch 02/18/22 02/18/22 02/18/22 16:31 16:49 18:56 WBC RBC Hgb Hct MCV MCH MCHC RDW Plt Count MPV Immature Gran % (Auto) Neut % (Auto) Lymph % (Auto) [place] % (Auto) Eos % (Auto) Baso % (Auto) Lymph # (Auto) [place] # (Auto) Eos # (Auto) Baso # (Auto) Abs Immat Gran (auto) Absolute Neuts (auto) Absolute Nucleated RBC Nucleated RBC % (auto) PT INR Sodium 132 L Potassium 4.7 Chloride 99 Carbon Dioxide 23 Anion Gap 15 BUN 29 H Creatinine 0.68 Estim Creat Clear Calc 90.7 Estimated GFR > 60 Random Glucose 105 Calcium 9.1 Troponin I High Sens Stool Occult Blood POSITIVE COVID-19 ([facility]) COVID-[employer] Blood Type A Positive Antibody Screen NEGATIVE Crossmatch See Detail 02/19/22 02/19/22 02/19/22 08:34 08:34 09:45 WBC 7.8 RBC 3.49 L Hgb 11.2 L Hct 30.6 L MCV 87.7 MCH 32.1 MCHC 36.6 H RDW 12.7 Plt Count 210 MPV 9.1 L Immature Gran % (Auto) 0.5 H Neut % (Auto) 70.9 Lymph % (Auto) 13.3 L [place] % (Auto) 12.6 H Eos % (Auto) 2.3 Baso % (Auto) 0.4 Lymph # (Auto) 1.0 L [place] # (Auto) 1.0 Eos # (Auto) 0.2 Baso # (Auto) 0.0 Abs Immat Gran (auto) 0.04 H Absolute Neuts (auto) 5.5 Absolute Nucleated RBC 0.000 Nucleated RBC % (auto) 0.0 PT 11.4 INR 1.0 Sodium 131 L Potassium 3.9 Chloride 98 Carbon Dioxide 24 Anion Gap 13 BUN 18 H Creatinine 0.63 Estim Creat Clear Calc 97.9 Estimated GFR > 60 Random Glucose 97 Calcium 8.5 D Troponin I High Sens Stool Occult Blood COVID-19 ([facility]) COVID-[employer] Blood Type Antibody Screen Crossmatch Airway Mallampati Class: II TM Dist: >3cm Neck ROM: Full Loose/Missing/Broken Teeth: No (Denies missing, broken or loose teeth) Heart: RRR Lungs: CTAB Assessment and Plan Assessment Anesthesia Assessment: Anesthesia Plan Discussed and Chart Reviewed Final Anesthetic Review Family History of Problems with Anesthesia: No History of Problems with Anesthesia: No NPO: Yes ASA Class: III and Emergency Final Preanesthetic Review: No Changes in Pt Med Stat, Meds/Allgs Chart Reviewed, Consent Obtained/Reviewed and Anes Risks/Benef Reviewed Patient Risk: Intermediate Procedure Risk: Low Assessment/Block/Sedation in SS: Assess/Block/Sedation-SS Anesthetic Plan Anesthetic Plan: MAC: Disposition: Standard PACU and Inp. Admit - Standard Bed
--- NOTE | 2022-02-19 14:00 | PC.NURSE ---
Patient presented to preop with IV placed in right forearm, #20. Dressing well intact. Flushed with no issues.
[2022-02-19] MEDS: Lactated Ringers 1,000 ML 100 ML IVCONT ×2 (14:01→23:24)
--- NOTE | 2022-02-19 14:51 | P.BOP_ITS ---
Brief Operative Note Date of Service: 02/19/22 Pre-op diagnosis: GIB Post-op diagnosis: same (duodenal ulcer) Surgeon: Sd Momin Anesthesia: MAC Was an Environmental Health Technologist used for this Procedure?: No Estimated blood loss (mL): 2 Pathology: other Condition: stable Disposition: PACU
--- NOTE | 2022-02-19 14:52 | PM.EVENT ---
Event Note Date of Service: 02/19/22 Event Note: EGD note dictated [id number] clean based duodenal bulb ulcer, no active bleeding antral bxs obtained rec advance diet follow hct no nsaids cont ppi
[2022-02-19] MEDS: Tamsulosin HCL 0.4 MG CAPSULE PO (22:05)
--- NOTE | 2022-02-19 23:04 | CONS_ITS ---
DATE OF SERVICE: 02/19/2022 REASON FOR CONSULTATION: Melena and anemia. HISTORY OF PRESENT ILLNESS: This has been obtained from the patient and the medical record. The patient is an 86-year-old male who was admitted to the ER with near syncopal episodes and reported melena. He describes the onset of melena at least 1 or 2 days before admission. He denies any associated nausea, nor vomiting. He denies any hematochezia. He denies any abdominal pain. He does take one 325 mg aspirin daily for his overall general health but denies the use of any NSAIDs. He does not smoke, but does have about 4 beers daily by his description. He denies any preceding history of abdominal pain, heartburn, nor dysphagia. He describes a good appetite. He does describe possibly some type of GI bleeding over 20 years ago for which he underwent a colonoscopy with removal of polyps, but he is not very clear on those details. He denies ever having had an upper endoscopy. Since being admitted to the ER, he has been stable. His hemoglobin on admission was 10.5 with a followup hemoglobin after 1 unit of blood showing an increase to 11.2. He presently feels well. He is hungry. MEDICATIONS: At home, amlodipine, aspirin 325 mg daily, atorvastatin, lisinopril, hydrochlorothiazide, vitamins, and tamsulosin. Medications here in the hospital include IV Protonix, atorvastatin, multivitamin, and tamsulosin. PAST MEDICAL HISTORY: Hypertension, hyperlipidemia. He denies history of OH, diabetes, stroke, lung disease, or kidney disease. PAST SURGICAL HISTORY: He describes hernia surgeries and knee surgery. SOCIAL HISTORY: He is . He does not smoke. He describes several beers daily. FAMILY HISTORY: Noncontributory. REVIEW OF SYSTEMS: CONSTITUTIONAL: He reports he had been feeling well up until recently. He describes a good appetite. SKIN: No rash no pruritus. CARDIAC: Denies chest pain. PULMONARY: Denies coughing or hemoptysis. GI: As above. URINARY: Denies any dysuria nor hematuria. PHYSICAL EXAMINATION: GENERAL: The patient is a pleasant elderly alert male, in no distress. SKIN: Warm and dry. Nonjaundiced. Anterior sclerae. NECK: Supple. CARDIAC: Normal S1, S2. ABDOMEN: Soft, nondistended, nontender. LABORATORY DATA: As above. White blood cell count 7.8, hemoglobin 11.2, MCV 87, platelets 210,000 PT 11.4 with INR 1.0. Sodium 131, potassium 3.9, BUN 18, creatinine 0.6. BUN yesterday was 29 with a creatinine 0.7. Stool was heme-positive in the lab. COVID was negative. IMPRESSION: Given the patient's clinical history, this seems quite consistent with an upper GI bleed given the reported melena, initially elevated BUN, and his daily use of aspirin and alcohol. At this point, I would recommend an upper endoscopy later today with monitored anesthesia care by myself or Dr. Momin. Full consent has been obtained from the patient for this, including risks of bleeding and perforation. In the meantime, I would recommend continued IV PPI, monitoring of hemoglobin, and n.p.o. until the endoscopy. This has all been discussed in detail with the patient, and he is presently comfortable with the plan. Thank you for the consultation. MD DAVID Moody/CORINA / [id number] [email or web address]
[2022-02-19] MEDS: 0.9 % Sodium Chloride Flush 3 ML SYRINGE IVFLUSH (23:29)
--- NOTE | 2022-02-20 02:05 | OP_ITS ---
SURGEON: Sd Momin MD INDICATIONS: Upper GI bleeding. PREOPERATIVE DIAGNOSIS: POSTOPERATIVE DIAGNOSIS: PROCEDURE PERFORMED: Upper endoscopy with biopsy. ESTIMATED BLOOD LOSS: COMPLICATIONS: ANESTHESIA: Monitored anesthesia care. ASSISTANTS: SPECIMENS: DESCRIPTION OF PROCEDURE: The procedure was performed on 02/19/2022. A history and physical were performed. The risks and benefits of the procedure were explained to the patient. Informed consent was obtained. The patient was placed in the left lateral decubitus position. The Olympus video gastroscope was introduced into the esophagus, stomach, and duodenum. Examination was performed. The scope was removed. He tolerated the procedure well and was taken to recovery area in stable condition. FINDINGS: 1. Esophagus: The esophagus was normal. The EG junction was irregular. There was no esophagitis. 2. Stomach: The stomach showed erythema consistent with gastritis. Biopsies were obtained from the antrum. 3. Duodenum. In the duodenal bulb, at 6 o'clock, was a 10 x 15 mm ulcer with surrounding erythema and no active bleeding. The base of the ulcer appeared clear. No therapy was performed. There was no blood in the duodenum. The 2nd portion was normal. IMPRESSION: Duodenal ulcer. RECOMMENDATION: 1. Follow up the biopsy results. 2. Proton pump inhibitor. 3. Monitor hematocrit. 4. No NSAIDs. MD SILVESTRE Casper/MEGANL / [id number]
--- NOTE | 2022-02-20 02:26 | PC.NURSE ---
Pt currently sleeping. Breaths are even and unlabored with equal chest rises. LR running at 100ml/hr. Will continue to monitor.
--- NOTE | 2022-02-20 04:01 | PC.NURSE ---
Pt sleeping at this time. Breaths are even and unlabored with equal chest rise. No apparent distress noted. LR running at 100ml/hr. Will continue to monitor.
[2022-02-20 07:10] VITALS: BP 160/80; PULSE 68; RESP 14; TEMP 36.4; O2SAT 97
[2022-02-20] MEDS: Atorvastatin Calcium 40 MG TABLET PO (08:18)
[2022-02-20] MEDS: Multivitamin TABLET 1 TAB PO (08:18)
[2022-02-20] MEDS: Pantoprazole Sodium 40 MG/10 ML VIAL IVPUSH (08:18)
[2022-02-20] MEDS: Tamsulosin HCL 0.4 MG CAPSULE PO (08:18)
[2022-02-20] MEDS: 0.9 % Sodium Chloride Flush 3 ML SYRINGE IVFLUSH (08:18)
--- NOTE | 2022-02-20 08:18 | PC.NURSE ---
patient a/ox4 . silviorla . heart rate regular at 67 beta sper minute . lungs clear . skin pink warm and dry . abdomen soft , not tender . positive bowel sounds in all quadrants . patient currently has LR running at 100ml/hr in his right wrist . patient was under the impression he was getting a colonoscopy done today contacted Hospitalist for clarification , Not plan of care . patient plan of care to discharge today . DR Brijesh Orellana at bedside to clarify with patient . patient aware of plan of care .
--- NOTE | 2022-02-20 10:04 | P.DS_ITS ---
DS: Providers Provider Date of Service: 02/20/22 Date of admission: 02/19/22 08:58 Primary care physician: Unknown Physician Consults: 02/19/22 08:31 Consult to Gastroenterology Stat Consulting Provider: Troy Anderson Reason for consultation: GIB Has provider been notified: Yes DS: Diagnosis Discharge Diagnosis (1) GI bleed: Status: Resolved (2) Hypertension: Status: Inactive (3) GERD (gastroesophageal reflux disease): Status: Inactive DS: Summary Hospital Course Hospital Course: Chief Complaint: Black stools Patient comes to the emergency room complaining of dizziness upon standing, black stool for 1 week.? Patient states that he has no chest pain or shortness of breath at rest.? But whenever he sits up and stands up, patient becomes very lightheaded.? Patient has also notice that his stool is black, initially started out as diarrhea, then took Imodium, today had constipation and used an enema to help him have a bowel movement.? Patient denies taking Pepto-Bismol.? Patient states that ?mini? years ago he had a colonoscopy, he had several polyps resected. ER Course Noted to be profoundly orthostatic; hemoglobin 10 given 1 unit of blood.? Ortho status essentially resolved if movement is slow per patient.? No further stools per patient Hospital course: Patienet was admitted and had serial H/H, hematocrit was unchanged. He underwent EGD by Dr. Momin on 02/19 and noted to have duodnal ulcer with no active bleed. Dr. Momin recommend PPI and follow up EGD on o utpatient basis. He is advised to stop aspirin Final diagnoses: Acute blood loss anemia Duodnal ulcer Dizziness that resolved Diarrhea that resolved Time Spent with Patient Time attestation: Total time spent providing and/or coordinating discharge services: Discharge coordination time: Greater than 30 minutes Quality: Safe Use of Opioids Does Pt have an Active Cancer Diagnosis on the Problem List?: No Quality: Stroke Does the patient have a stroke diagnosis?: No Physical Exam Vital Signs: Vital Signs: Last Vital Signs Temp 97.5 F 02/20/22 07:10 Pulse 68 02/20/22 07:10 Resp 14 02/20/22 07:10 BP 160/80 H 02/20/22 07:10 Pulse Ox 97 02/20/22 07:10 O2 Del Method 02/20/22 07:10 O2 Flow Rate 6 02/19/22 14:48 BMI result Body Mass Index 21.9 DS: Data Data Completed and Pending Pending studies at discharge: Pending at discharge 02/19/22 14:38 Surgical [PTH] Routine Labs on day of discharge: Laboratory Results - last 24 hr 02/19/22 09:45 PT 11.4 INR 1.0 Discharge Plan Discharge Anticipated Discharge Date/Time: 02/20/22 09:52 Patient Disposition: Home, Self-Care Discharge Diagnosis: GI bleed, anemia Referrals: Physician,Unknown J [Primary Care Provider] - 1 Week Discharge Medications: New omeprazole 40 mg capsule,delayed release(DR/EC) 40 mg PO DAILY Qty: 30 2RF Continued multivitamin Tablet 1 tab PO DAILY atorvastatin 40 mg tablet 1 tab PO DAILY amlodipine 2.5 mg tablet 1 tab PO DAILY tamsulosin 0.4 mg capsule 1 cap PO BID lisinopril-hydrochlorothiazide 10-12.5 mg tablet 2 tab PO DAILY Discontinued aspirin 325 mg Tablet,Delayed Release (Dr/Ec) 325 mg PO DAILY Discharge Orders: Discharge Order (Routine); Ordered 02/20/22 Ordered By: Long Orellana Diet: Advance to usual diet Activity on Discharge: As tolerated Stand Alone Forms: Patient Portal Discharge page, Against Medical Advice Care Plan Goals: Resolution of duodnal ulcer Health Concerns: duodnal ulcera, anemia Plan of Treatment: Take Prilosec as ordered and follow up with dr. Merrill Ugarte taking Aspirin Assessment: as Discharge Date/Time: 02/20/22 18:45
[2022-02-20 10:13] VITALS: BP 166/76; PULSE 70; RESP 14; TEMP 36.9; O2SAT 99
--- NOTE | 2022-02-20 10:28 | PC.NURSE ---
patient ripped out IV . adamantly wanting to discharge unhappy about provider care believed he was going to get a colonoscopy and if he was not going to get one he wanted to leave now . Contacted . Dr Orellana who was notified and put in discharge instructions . patient was discharged and brought to front via wheelchair with . patient given discharge instructions information . to follow up with GI Dr Meehan . Patient has no questions at this time .
--- NOTE | 2022-02-20 11:52 | HO.POSTANES ---
Post Anesthesia Evaluation Post Anesthesia Evaluation Vital Signs: Vital Signs Temp Pulse Resp BP Pulse Ox O2 Del Method 02/20/22 10:13 98.5 F 70 14 166/76 H 99 Room Air 02/20/22 07:10 97.5 F 68 14 160/80 H 97 Room Air Anesthesia: Monitored Mental Status: Awake Pain Control: Satisfactory Nausea/Vomiting: None Hydration: Adequate Anesthesia-Related Issues: No Anes. Related Issues
== END 2022-02-20 18:45 | disposition home or self-care (01) | DRG 379 ==
LOC: HO.ED 18:30 → HO.EDOVER 02-19 09:06
PROVIDERS: Emergency Medicine; Internal Medicine Gastroenterology; Admitting Provider Hospitalist; Emergency Provider Emergency Medicine; Visit Provider Internal Medicine
PROC: 0DB78ZX Excision of Stomach, Pylorus, Via Natural or Artificial Opening Endoscopic, Diagnostic (ICD-10-PCS; principal; 2022-02-19 14:20)
DX: K29.71 Gastritis, unspecified, with bleeding (principal); I10 Essential (primary) hypertension; K26.4 Chronic or unspecified duodenal ulcer with hemorrhage; K21.9 Gastro-esophageal reflux disease without esophagitis; Z20.822 Contact with and (suspected) exposure to COVID-19; Z87.891 Personal history of nicotine dependence; Z79.82 Long term (current) use of aspirin; Z79.899 Other long term (current) drug therapy
CPT/HCPCS: 36415; 80048; 82272; 84484; 85025; 85610; 86850; 86900; 86901; 86923; 87635; 88305; 88342; 93005; 99285; P9016

== ENCOUNTER 2022-10-10 09:43 | Outpatient (REF) | payer MEDICARE, SELFPAY | END 2022-10-10 09:44 | disposition home or self-care (01) | LOC: HO.LAB 09:43 | PROVIDERS: PCP Internal Medicine; Visit Provider Nurse Practitioner Family | DX: N39.0 Urinary tract infection, site not specified (principal); N40.1 Benign prostatic hyperplasia with lower urinary tract symptoms | CPT/HCPCS: 51798; 87086; 87088; 87186; 99202 ==

== ENCOUNTER 2022-11-25 10:46 | Outpatient (AMB) | payer MEDICARE, SELFPAY ==
--- NOTE | 2022-11-25 10:55 | A.OFFVIS_ITS ---
Intake Intake Visit Reasons: 6w/cysto/US(No US Done) Intake Note: Patient is present for Cystoscopy Urology Med: Tamsulosin Antibiotic Allergy: None Blood Thinner: Plavix(Clopidogrel) Disposable Cystoscope LOT: [id number] EXP: 10/31/24 Allergies No Known Allergies Allergy (Verified 11/25/22 10:56) HPI HPI Comments History of Present Illness Details Pedro is a pleasant male. He is a patient of Dr. Boyce. He seen for the following urologic conditions - neurogenic bladder Present for cystoscopy - accompanied by Rosy Recent recurrent urinary tract infection Open bladder neck with a normal looking bladder today Has had effective bladder emptying with low PVR in office Six month follow-up Neurogenic bladder Longstanding history of incomplete bladder emptying Initial management with clean intermittent catheterization Was diagnosed while living in [place] Underwent procedure [facility] early 2022 Has maintained low PVR PFSH Medical History GERD (gastroesophageal reflux disease) Hypertension Surgical History H/O colonoscopy Inguinal hernia recurrent unilateral Social History Alcohol intake: current Alcohol intake frequency: 3 or more drinks per day Alcohol type: beer Patient Tobacco Use Status: Former Tobacco user Tobacco use type: Cigarette Years Smoked: 40 Review of Systems Const Denies chills and Denies fever(s) Card Reports no additional complaints and Denies syncope Resp Denies cough GI Denies abdominal pain and Denies heartburn Reports as per HPI and Denies change in libido Neuro Denies syncope Psych Denies change in libido Endo Denies change in libido Physical Exam Const General: cooperative, healthy appearing, comfortable and no acute distress Orientation/consciousness: patient oriented x3 HEENT Face and sinus: Yes normal facial exam Mouth: moist mucous membranes Neck Neck: Yes normal visual inspection, Yes full ROM and Yes trachea midline Chest Chest palpation & inspection: normal inspection of the chest Resp Effort & Inspection: normal respiratory effort, able to speak in complete sentences and no respiratory distress GI Inspection: Yes normal to inspection Back/Spine/Pelvis Cervical Spine: normal cervical lordosis Thoracic/Lumbar Spine: thoracic and lumbar spine normal to inspection Skin General skin exam: no rashes or lesions noted Neuro General: patient oriented x3, gait normal, tone normal and moves all extremities Extrem General: Yes normal to inspection and Yes capillary refill normal Office Procedures Cystoscopy Consent Discussed risk and benefit or proposed procedure with the patient. Information consent for procedure given to the patient. Discussed technical aspects, risks, benefits and alternatives in full. Addressed all of the patient's questions and concerns regarding the procedure. The patient demonstrated knowledge and understanding. They wish to proceed with this procedure. Preparation The patient was prepped in the usual manner. A masonry supervisor was present and in the room. Genitalia was prepped with betadine solution in a sterile manner. Lidocaine Jelly 2% was placed into the urethra and 16Fr flexible Olympus cystoscope was inserted into the meatus after adequate lubrication. 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 - [id number] Procedure code (CPT) selection complete Office Meds lidocaine HCl Performing Provider: Fran Martinez MD Administered by: Mena Briones RN on 11/25/22 11:04 Dose Route Admin Location Lot Number Expiration Date [place] [employer] 10 mL intra-urethral nitrofurantoin monohyd/m-cryst 100 mg Performing Provider: Fran Martinez MD Administered by: Mena Briones RN on 11/25/22 11:04 Dose Route Admin Location Lot Number Expiration Date [facility] Commission[employer] 100 mg PO Results AMB Urinalysis, Automated UA Leukoctes 0 Gregg/uL Last Edit by MEGHA Dunne on 11/25/22 11:03 UA Nitrite Negative Last Edit by MEGHA Dunne on 11/25/22 11:03 UA Urobilinogen 0.2 mg/dL Last Edit by MEGHA Dunne on 11/25/22 11:0 3 UA Protein 0 mg/dL Last Edit by MEGHA Dunne on 11/25/22 11:03 UA pH 7.0 Last Edit by MEGHA Dunne on 11/25/22 11:03 UA Blood 0 David/uL Last Edit by MEGHA Dunne on 11/25/22 11:03 UA Specific [place] 1.015 Last Edit by MEGHA Dunne on 11/25/22 11: 03 UA Ketone Negative Last Edit by MEGHA Dunne on 11/25/22 11:03 UA Bilirubin 0 mg/dL Last Edit by Spring Leonard RMA on 11/25/22 11:03 UA Glucose 0 mg/dL Last Edit by DEBO DunneA on 11/25/22 11:03 Results Reviewed Results Reviewed: Laboratory Last Values Urine pH (Auto) 7.0 11/25/22 10:57 Specific [place] (Auto) 1.015 11/25/22 10:57 Urine Protein (Auto) 0 mg/dL 11/25/22 10:57 Glucose (UA)(Auto) 0 mg/dL 11/25/22 10:57 Urine Ketones (Auto) Negative 11/25/22 10:57 Urine Blood (Auto) 0 David/uL 11/25/22 10:57 Urine Nitrite (Auto) Negative 11/25/22 10:57 Urine Bilirubin (Auto) 0 mg/dL 11/25/22 10:57 Urine Urobilinogen (Auto) 0.2 mg/dL 11/25/22 10:57 Leukocyte Esterase (Auto) 0 Gregg/uL 11/25/22 10:57 Assessment & Plan Assessment & Plan (1) BPH loc w urin obs/LUTS: Code(s): N40.1 - Benign prostatic hyperplasia with lower urinary tract symptoms (2) UTI (urinary tract infection) with pyuria: Code(s): N39.0 - Urinary tract infection, site not specified Plan Six month follow-up PVR Orders: Orders AMB Cystoscopy Today N40.1 - Benign prostatic hyperplasia with lower urinary tract symptoms AMB Urinalysis Automated Today Z13.9 - Encounter for screening, unspecified Patient Instructions: Imaging studies, laboratory and physical exam results were discussed and reviewed in detail. No major barriers to patient understanding were identified. An opportunity to ask questions regarding the treatment plan was provided. All questions were answered. The patient expressed understanding and agreement with the above treatment plan. The patient is aware they should contact our office by phone for worsening of their current condition or the appearance of new urologic symptoms. Compliance is encouraged with any medications and followup testing that is ordered. It is a privilege to participate in the urologic care of your patient. If you have any questions or concerns regarding treatment for the above conditions, or other urologic issues, please do not hesitate to contact me. The office telephone contact is [phone]. This note is constructed using voice recognition software. While every effort has been made to ensure accuracy air crew supervisor errors may have been included. Yours sincerely, Dr Fran Martinez MD, FAD[facility] - Urology Providers of Expert, Compassionate Care for the Genitourinary System Coding Level of Care Code Est Pt Level 3 (81295) Diagnoses BPH loc w urin obs/LUTS N40.1 UTI (urinary tract infection) with pyuria N39.0 CPT Codes Cystoscopy - CPT: 59670-[id number] ([id number])
== END 2022-11-25 12:21 | disposition home or self-care (01) ==
PROVIDERS: Visit Provider Urology
DX: N40.1 Benign prostatic hyperplasia with lower urinary tract symptoms (principal); N39.0 Urinary tract infection, site not specified
CPT/HCPCS: 52000

== ENCOUNTER → 2022-11-25 10:46 | Outpatient (BNVA) | payer MEDICARE, SELFPAY | PROVIDERS: Visit Provider Urology | DX: N40.1 Benign prostatic hyperplasia with lower urinary tract symptoms (principal); N39.0 Urinary tract infection, site not specified | CPT/HCPCS: 52000 ==